=== PATIENT | female | born 1985 | race Caucasian/White ===

== ENCOUNTER 2016-09-01 09:49 | Inpatient (IN) | payer BC, OTHER ==
[~2016-09-01 09:49] MED LIST: PERC5TAB12 PO; PRENTAB72 PO; [UNRECOGNIZED DRUG - CODE] PO
[2016-09-01] MEDS ORDERED: LACTATED RINGER'S 1000 ML INJ 1,000 ML IV PRN (10:04)
[2016-09-01] MEDS ORDERED: LIDOCAINE HCL 1% 50 ML VIAL INFIL PRN (10:15)
[2016-09-01] MEDS ORDERED: SODIUM CHLORID 0.9% 500 ML INJ 500 ML IV PRN (10:15)
[2016-09-01] MEDS ORDERED: MINERAL OIL 10 ML VIAL TOPICAL PRN (10:15)
[2016-09-01] MEDS ORDERED: OXYTOCIN 30 UNITS-500ML PREMIX 500 ML IV ONE (10:15)
[2016-09-01] MEDS ORDERED: CITRIC ACID-SODIUM CITRATE LIQ 30 ML UDC PO SCH (10:15)
[2016-09-01] MEDS ORDERED: LIDOCAINE HCL 1% 50 ML VIAL I-DERMAL PRN (10:15)
--- NOTE | 2016-09-01 10:17 | HHI.HP ---
HPI Chief Complaint labor pain Date Seen: Sep 01, 2016 Travel History International Travel<30 Days: No Contact w/Intl Traveler<30Days: No History of Present Illness HPI Patient is 31-year-old white female at 30 9/2 weeks presents in active labor 9 cm cervical dilation no bleeding or ruptured membranes noted heart rate tracing is reactive. Para: 1 : 2 History Obstetric History Obstetric History One vaginal delivery Allergies-Medications (Allergen,Severity, Reaction): Coded Allergies: No Known Allergies (Unverified , 03/26/13) Home Meds Reported Medications Oxycodone-Acetaminophen 5-325 mg (Percocet 5-325 mg)5 Mg/325 Mg Tab1 Tab PO Q4- 6HPRN #30 03/29/13 Expecta [id number] Mg 200 Mg [id number] Mg PO DAILY 03/26/13 Vit W/ Ferrous Fumara () Tab1 Po Daily 03/26/13 Review of Systems General / Constitutional: No: Fever, Weight Gain, Chills, Other Physical Exam Narrative GENERAL: Well-nourished, well-developed patient. SKIN: Warm and dry. HEAD: Normocephalic and atraumatic. EYES: No scleral icterus. No injection or drainage. ENT: No nasal drainage noted. Mucous membranes pink. Airway patent. NECK: Supple, trachea midline. No JVD. CARDIOVASCULAR: Regular rate and rhythm without murmurs, gallops, or rubs. RESPIRATORY: Breath sounds equal bilaterally. No accessory muscle use. BREASTS: Bilateral exam showed no masses , no retractions, no nipple discharge. ABDOMEN/GI: Abdomen soft, non-tender, bowel sounds present, no rebound, no guarding Gravid to [term-] weeks size Fundal Height: [-37 cm] GENITOURINARY: External Genitalia: intact and normal in appearance BUS glands: [-] Cervix: [-]dilated Dilatation: [9-] Effacement: [-100] Station: [-1] Presentation: [vtx-] Membranes: [intact ] Uterine Contractions: [reg-] FHT's: Category: [-1] Baseline: [144-] Reactive: [-yes] Variability: [-] Decels: [-none] EXTREMITIES: No cyanosis or edema. BACK: Nontender without obvious deformity. No CVA tenderness. NEUROLOGICAL: Awake and alert. Motor and sensory grossly within normal limits. Five out of 5 muscle strength in all muscle groups. Normal speech. Data Data Orders Ob (2e) Additional Admit Info (09/01/16 10:05) Admit To Inpatient (09/01/16 ) Vital Signs (Adult) .Per protocol (09/01/16 10:04) ^ Heart (09/01/16 10:04) ^ Amnioinfusion (09/01/16 10:04) Urinary Catheter Management .ONCE (09/01/16 10:04) Diet Liquid (09/01/16 Lunch) Lactated Ringer's 1000 Ml Inj (Lr 1000 M (09/01/16 10:04) Lactated Ringer's 1000 Ml Inj (Lr 1000 M (09/01/16 10:04) Sodium Chlorid 0.9% 500 Ml Inj (Ns 500 M (09/01/16 10:15) Sodium Chlor 0.9% 1000 Ml Inj (Ns 1000 M (09/01/16 10:24) Lidocaine 1% Inj (50 Ml) (Xylocaine 1% I (09/01/16 10:15) Citric Acid-Sodium Citrate Liq (Bicitra (09/01/16 10:15) Fentanyl Inj (Fentanyl Inj) (09/01/16 10:15) Fentanyl Inj (Fentanyl Inj) (09/01/16 10:15) Complete Blood Count With Diff (09/01/16 10:04) Hold Clot (09/01/16 10:04) Abo/Rh Blood Type (09/01/16 10:04) Urinalysis - C+S If Indicated (09/01/16 10:04) Resp Oxygen Non Rebreathe Mask (09/01/16 ) ^ Epidural / Intrathecal Infus (09/01/16 10:04) Oxytocin 30 Units-500ml Premix (Pitocin (09/01/16 10:15) Lidocaine 1% Inj (50 Ml) (Xylocaine 1% I (09/01/16 10:15) Light Mineral Oil (Muri-Lube Oil) (09/01/16 10:15) Assessment/Plan Assessment and Plan She is 31-year-old white female at 30 9/2 weeks presents in active labor. Cervix is 9 cm dilated membranes intact with a bulging bag no vaginal bleeding. Plan the patient be admitted and anticipate vaginal delivery, discussed patient with her OB doctor Dr. Berrios is on the way. Anirudh Us II, MD Sep 01, 2016 10:17
[2016-09-01] MEDS ORDERED: SODIUM CHLOR 0.9% 1000 ML INJ 1,000 ML IV PRN (10:24)
[2016-09-01 10:34] LABS: AUTOMATED NEUTROPHIL # 9.8 TH/MM3 (1.8-7.7); BASOPHIL % 0.3 % (0.0-2.0); EOSINOPHIL # 0.1 TH/MM3 (0-0.4); HEMATOCRIT 36.7 % (35.0-46.0); HEMO FLAGS DIFF FINAL; LYMPH % 17.6 % (9.0-44.0); LYMPHOCYTE # 2.3 TH/MM3 (1.0-4.8); MEAN CELL VOLUME 83.7 FL (80.0-100.0); MEAN CORPUSCULAR HEMOGLOBIN 27.3 PG (27.0-34.0); MEAN CORPUSCULAR HGB CONC 32.6 % (32.0-36.0); MONO % 7.3 % (0.0-8.0); NEUT % 73.8 % (16.0-70.0); PLATELET COUNT 212 TH/MM3 (150-450); RED BLOOD COUNT 4.38 MIL/MM3 (4.00-5.30); RED CELL DISTRIBUTION WIDTH 14.7 % (11.6-17.2); WHITE BLOOD COUNT 13.3 TH/MM3 (4.0-11.0)
[2016-09-01 10:51] LABS: BLOOD, URINE TRACE (NEG); COMMENT (UR) CULT NOT INDICATED; CULTURE IF INDICATED CULT NOT INDICATED; GLUCOSE,URINE NEG (NEG); KETONE, URINE NEG (NEG); MUCUS URINE MANY /lpf (OCC); NITRITE,URINE NEG (NEG); SQUAMOUS EPITHELIAL CELL URINE 9 /hpf (0-5); URINE COLOR YELLOW (YELLW/STRAW)
[2016-09-01] MEDS: LACTATED RINGER'S 1000 ML INJ 1,000 ML IV SCH (11:05)
[2016-09-01] MEDS ORDERED: DOCUSATE SODIUM 50 MG/SENNA 8.6 MG TAB PO PRN (11:30)
[2016-09-01] MEDS ORDERED: oxyCODONE/ACETAMINOPHEN 5 MG/325 MG TAB PO PRN (11:30)
[2016-09-01] MEDS ORDERED: BENZOCAINE 20% TOPICAL SPRAY 60 ML CAN TOPICAL PRN (11:30)
[2016-09-01] MEDS ORDERED: ONDANSETRON ODT 4 MG TAB PO PRN (11:30)
[2016-09-01] MEDS ORDERED: WITCH HAZEL 50%/GLYCERIN 12.5% 40 PAD JAR TOPICAL PRN (11:30)
[2016-09-01] MEDS ORDERED: ZOLPIDEM TARTRATE 5 MG TAB PO PRN (11:30)
[2016-09-01] MEDS ORDERED: ALUMINUM/MAGNESIUM/SIMETH 30 ML CUP PO PRN (11:30)
[2016-09-01] MEDS ORDERED: ACETAMINOPHEN 325 MG TAB PO PRN (11:30)
[2016-09-01] MEDS ORDERED: SODIUM CHLORIDE 0.9% FLUSH 5 ML FLUSH IV PRN (11:30)
[2016-09-01] MEDS: IBUPROFEN 600 MG TAB PO PRN (11:42)
[2016-09-01 13:03] VITALS: PULSE 80; RESP 20
[2016-09-01 13:04] VITALS: TEMP 98
[2016-09-01] MEDS ORDERED: DIPHTH/TETANUS/ACEL PERTUSSIS (BOOSTER) 0.5 ML VIAL/PFS IM ONE (16:00)
[2016-09-01] MEDS ORDERED: MEASLES, MUMPS, RUBELLA VACCINE 0.5 ML VIAL SQ ONE (16:00)
[2016-09-01] MEDS ORDERED: SODIUM CHLORIDE 0.9% FLUSH 5 ML FLUSH IV SCH (21:00)
[2016-09-02] MEDS: LACTATED RINGER'S 1000 ML INJ 1,000 ML IV SCH (02:04)
[2016-09-02] MEDS: IBUPROFEN 600 MG TAB PO PRN (09:04)
== END 2016-09-02 17:50 | disposition home or self-care (01) | DRG 775 ==
LOC: HOBED 09:49 → H2EA 10:14 → H1EA 12:52
PROVIDERS: ADMIT Obstetrics & Gynecology; ATTEND Obstetrics & Gynecology
PROC: 0KQM0ZZ Repair Perineum Muscle, Open Approach (ICD-10-PCS; principal; 2016-09-01)
PROC: 10E0XZZ Delivery of Products of Conception, External Approach (ICD-10-PCS; 2016-09-01)
DX: O70.1 Second degree perineal laceration during delivery (principal); Z37.0 Single live birth; Z3A.30 30 weeks gestation of pregnancy
CPT/HCPCS: 81001; 85025; 86900; 86901; 90715; 99285; J2590; J7120

== ENCOUNTER 2016-10-07 14:34 | Emergency (ER) | payer BC ==
[~2016-10-07] VITALS: Ht 170.2 cm; Wt 83.3 kg
[~2016-10-07 14:34] MED LIST changes: -PERC5TAB12 PO; -[UNRECOGNIZED DRUG - CODE] PO
[2016-10-07 14:36] VITALS: BP 129/83; PULSE 67; RESP 18; TEMP 97.9; O2SAT 99
[2016-10-07] MEDS ORDERED: TETANUS/DIPHTHERIA TOXOID ADULT 0.5 ML VIAL IM ONE (15:00)
--- NOTE | 2016-10-07 15:01 | PD ---
HPI Chief Complaint: Edema Time Seen by Provider: 14:51 Travel History International Travel<30 days: No Contact w/Intl Traveler<30days: No Traveled to known affect area: No History of Present Illness HPI The patient is a 31-year-old female who presents to the emergency department for right lower extremity pain. The patient states she was running down a hill chasing after her son's ball when she fell and hit the anterior aspect of her right lower extremity on the stump of a tree. Patient complains of a hematoma over the anterior aspect of the right lower extremity with pain as well as a superficial bruise over the medial aspect the left lower extremity and a bruise over the anterior aspect of the right foot. The patient applied ice to the affected area and states the swelling got better, however, after she stopped the ice the hematoma got larger. The patient was seen in an urgent care and referred to the emergency department. Patient does complain of a superficial abrasion of the anterior aspect the right lower extremity. The patient is currently 5 weeks post vaginal delivery and is currently breast- feeding. PFSH Past Medical History ?: Not Social History Alcohol Use: No Tobacco Use: No Allergies-Medications (Allergen,Severity, Reaction): Coded Allergies: No Known Allergies (Unverified , 10/07/16) Reported Meds & Prescriptions Reported Meds & Active Scripts Active Reported ( Vit-Ferrous Fumarate) 1 Tab Tab 1 Tab PO DAILY Review of Systems Except as stated in HPI: all other systems reviewed are Neg HENT: No: Headaches, Neck Pain Cardiovascular: No: Chest Pain or Discomfort Respiratory: No: Shortness of Breath Musculoskeletal: Positive: Edema, Pain Neurologic: No: Paresthesia, Sensory Disturbance Physical Exam Narrative GENERAL: Awake, alert, pleasant 31-year-old female who appears her stated age and is in no acute respiratory distress. She does appear moderate discomfort. SKIN: Warm and dry. HEAD: Atraumatic. Normocephalic. EYES: Tearful. ENT: No nasal bleeding or discharge. Mucous membranes pink and moist. NECK: Trachea midline. No JVD. MUSCULOSKELETAL: The patient has a hematoma over the anterior aspect the right lower extremity just inferior to the patella with a superficial abrasion. The patient is exquisitely tender to palpation. The right lower extremity slightly cool to the left, however, she did recently have ice applied to affected area. Patient is able to move all 5 toes of the right foot. Passive range of motion of the ankle does not elicit the patient's pain. The patient has a Doppler pulse on the right. Sensation is intact to the medial, lateral, dorsal aspect the right foot, slightly decreased near the hematoma. NEUROLOGICAL: Awake and alert. No obvious cranial nerve deficits. Motor grossly within normal limits. Normal speech. PSYCHIATRIC: Appropriate mood and affect; insight and judgment normal. Data Data Last Documented VS Vital Signs Date Time Temp Pulse Resp B/P Pulse Ox O2 Delivery O2 Flow Rate FiO2 10/07/16 15:00 18 100 Room Air 10/07/16 14:36 97.9 67 129/83 Orders Tibia/Fibula (Ap/Lat) (10/07/16 ) Tetanus/Diphtheria Tox Adult (Tetanus/Di (10/07/16 15:00) Ondansetron Inj (Zofran Inj) (10/07/16 15:45) Morphine Inj (Morphine Inj) (10/07/16 16:00) Morphine Inj (Morphine Inj) (10/07/16 15:53) [facility] Medical Decision Making Medical Screen Exam Complete: Yes Emergency Medical Condition: Yes Medical Record Reviewed: Yes Interpretation(s) X-ray reveals no obvious fracture dislocation. Differential Diagnosis Differential diagnosis includes hematoma, compartment syndrome, laceration, abrasion, fracture, contusion. Narrative Course IV was established. I had a discussion with the patient regarding medication administration, morphine, intravenously. The patient is currently breast- feeding, I advised her that morphine is consider generally safe in . However, patient will breast-feed, and then will pump at home and dump. X-ray of the right lower extremity was ordered. Tetanus shot was updated. Patient received morphine, had mild dysphoria with ejection morphine, therefore, only 2 mg was administered. Anterior compartment pressure was measured, was 10, therefore, not compartment syndrome. The patient will be discharged home with Tylenol with Codeine, is advised ice, elevate, apply pressure. Diagnosis Primary Impression: Hematoma Patient Instructions: General Instructions Additional Instructions: Elevate, ice, compression wrappings. Tylenol with Codeine as needed for pain. If pain is minimal, just Tylenol and/or Motrin. Follow-up with her primary physician. Return if symptoms worsen or progress. Med/Other Pt SpecificInfo: Prescription(s) given Scripts Acetaminophen-Codeine (Tylenol-Codeine #3)300-30 mg Tab1 Tab PO Q4H PRN (PAIN) # 20 TAB Ref 0 Prov:Sam Quinones MD 10/07/16 Disposition: 01 DISCHARGE HOME Condition: Stable aSm Quinones MD Oct 07, 2016 15:01
[2016-10-07] MEDS ORDERED: TRICTAB PO (15:10)
[2016-10-07] MEDS ORDERED: ONDANSETRON HCL 4 MG/2 ML VIAL IV PUSH ONE (15:45)
[2016-10-07] MEDS ORDERED: MORPHINE SULFATE 4 MG/ML INJ ONE (15:53)
[2016-10-07] MEDS ORDERED: MORPHINE SULFATE 4 MG/ML INJ IV PUSH ONE (16:00)
[2016-10-07] MEDS ORDERED: TYLETAB34 PO (16:10)
--- NOTE | 2016-10-07 16:17 | RADHPO ---
EXAM DATE/TIME: 10/07/2016 15:26 [facility] COMPARISON: No previous studies available for comparison. INDICATIONS : Right proximal tibia/fibula pain with swelling post fall. MEDICAL HISTORY : None. SURGICAL HISTORY : None. ENCOUNTER: Initial ACUITY: 1 day PAIN SCORE: 10/10 LOCATION: Right proximal tibia FINDINGS: There is soft tissue swelling anterior to the proximal tibia. No underlying fracture is noted. No r adiopaque foreign body is noted. CONCLUSION: 1. Focal soft tissue swelling anterior to the right proximal tibia. 2. No acute fracture or dislocation. No radiopaque foreign body is noted. Bridger Jeffers MD on October 07, 2016 at 16:12 Board Certified Radiologist. This report was verified electronically.
== END 2016-10-07 16:45 | disposition home or self-care (01) ==
LOC: PHED 14:34
DX: M79.604 Pain in right leg (principal); S80.11XA Contusion of right lower leg, initial encounter; W22.8XXA Striking against or struck by other objects, initial encounter; Y93.02 Activity, running; Y99.8 Other external cause status
CPT/HCPCS: 73590; 96374; 96375; 99283; J2270; J2405